=== PATIENT | female | born 1945 | race Caucasian/White ===

== ENCOUNTER 2017-12-12 05:00 | Day surgery (SDC) | payer MEDICARE, OTHER ==
[2017-12-11 11:57] LABS: HEMATOCRIT 40.9 % (36.0-48.0); HEMOGLOBIN 14.1 g/dL (12-16); MCH 32.6 pg (26.0-34.0); MCHC 34.5 g/dL (31.0-37.0); MCV 94.7 fL (80.0-100.0); MEAN PLATELET VOLUME 9.1 fL (7.4-10.4); RBC 4.32 10x6/uL (4.00-5.40); RDW 12.7 % (11.5-14.5); WBC 7.7 10x3/uL (4.8-10.8)
[~2017-12-12] VITALS: Ht 160 cm; Wt 81.6 kg
--- NOTE | ~2017-12-12 | OP ---
PATIENT NAME: JULIENNE BUCIO MEDICAL RECORD: [id number] :49 LOCATION:D.OPS ADMISSION DATE: SURGEON: CATHY AGUERO DPM DATE OF OPERATION: 12/12/2017 PREOPERATIVE DIAGNOSIS: Plantar fasciitis, left foot. POSTOPERATIVE DIAGNOSIS: Plantar fasciitis, left foot. PROCEDURE: Instep plantar fasciotomy, left foot. ANESTHESIA: Local with IV sedation utilizing lidocaine and Marcaine plain 17 cc on the surgical site. HEMOSTASIS: Left ankle tourniquet at 250 mmHg. PREOPERATIVE DETAILS: The patient was taken to the OR and placed on the operating table in supine position. This was followed by induction of general anesthesia and infiltration of local anesthetic. The left extremity was then prepped and draped in the usual aseptic technique followed by exsanguination of extremity and inflation of tourniquet. A 15 blade was used to create a 2 cm linear incision over the plantar aspect of the left foot just anterior to the weightbearing surface of the heel. The incision was deepened down through subcutaneous tissue to the plantar fascia, which was incised with the foot in dorsiflexion, allowing a gap in the fascia and reduction of the tightness in the fascia. The wound was flushed. The skin was repaired with 4-0 Rapide subcutaneously and the skin was closed with 4-0 Rapide in a subcuticular technique followed by Dermabond. Adaptic, 4 x 4, and Conform were used to dress the wound followed by Coban. Tourniquet was deflated. POSTOPERATIVE DETAILS: The patient tolerated the procedure well and left the OR with vital signs stable and vascular status at preoperative levels. The patient was transported to recovery per anesthesia in stable condition. TRANSINT:[id number] Voice Confirmation ID: [id number] DOCUMENT ID: [id number] CATHY AGUERO DPM at 0751 CC: [id number] DICTATION DATE: 12/12/17 0753 [facility] [employer] OPERATOR: 12/12/17 0952 [facility] 12/12/17 [facility] [address] [place] [address]
[~2017-12-12 05:00] MED LIST: ATIVAN1 MG PO; IBUPROFEN800 MG PO; LEVOTHYROXINE100 MCG PO; LEXAPRO10 MG PO; OXYCODONE HCL5 M1 PO; SKELAXIN800 MG PO; TEMAZEPAM30 MG PO; TENORMIN25 MG PO; TRAZODONE HCL100 MG PO; ZOCOR40 MG PO
[2017-12-12 06:14] VITALS: BP 147/60; Ht 160 cm; Wt 81.6 kg
== END 2017-12-12 09:45 | disposition home or self-care (01) ==
LOC: D.OPS 05:00 → D.PAN 08:15 → D.OPS 09:15
PROVIDERS: Anesthesiology
DX: M72.2 Plantar fascial fibromatosis (principal)